=== PATIENT | female | born 1980 | race Caucasian/White ===

== ENCOUNTER → 2021-08-08 07:32 | Outpatient (CLI) | payer BC, SELFPAY ==
--- NOTE | 2021-08-08 | DI.US.S_ITS ---
PROCEDURE: US ABDOMEN LIMITED INDICATIONS: SOFT TISSUE MASS RIGHT BACK,THORACIC REGION TECHNIQUE: Real-time focused scanning was performed of the abdomen, with image documentation. COMPARISON: None. FINDINGS: No mass identified in the area of clinical interest. No fluid collections or soft tissue edema identified in the area of clinical interest. No new large lymph nodes identified in the area of clinical interest. IMPRESSION: No sonographic abnormality identified in the region of clinically palpable mass. Decision to biopsy mass should be based on clinical assessment. Dictated by: Evelin Gill MD, PhD on 08/08/2021 at 10:33 Approved by: Evelin Gill MD, PhD on 08/08/2021 at 10:34
== END ==
PROVIDERS: PCP Physician Assistant; Referring Provider Physician Assistant; Visit Provider Physician Assistant
DX: M79.9 Soft tissue disorder, unspecified (principal)
CPT/HCPCS: 76705